=== PATIENT | female | born 1955 | race Caucasian/White ===

== ENCOUNTER 2017-03-10 23:33 | Inpatient (IN) | payer OTHER ==
[~2017-03-10] VITALS: Ht 182.9 cm; Wt 113.2 kg
[2017-03-10 23:41] VITALS: BP 191/97; PULSE 116; RESP 18; O2SAT 99
[2017-03-10 23:43] VITALS: BP 191/97; PULSE 154; RESP 18; TEMP 97.9; O2SAT 99
[2017-03-10 23:50] VITALS: BP 163/98; PULSE 150; RESP 18; O2SAT 100
[2017-03-10 23:51] VITALS: BP 163/98; PULSE 142; RESP 18; O2SAT 99
--- NOTE | 2017-03-10 23:57 | PD ---
HPI Chief Complaint: Chest Pain Time Seen by Provider: 23:50 Travel History International Travel<30 days: No Contact w/Intl Traveler<30days: No Traveled to known affect area: No History of Present Illness HPI 61-year-old female complains of palpitation. Patient states the palpitations started this evening. Patient states that she tried several maneuvers without success. Patient denies any history of cardiac disease. Patient denies any headache. Patient denies any chest pain or shortness of breath. Patient denies abdominal pain. Patient denies history hypertension, diabetes, hyperlipidemia. Patient is a nonsmoker. Patient denies any history of excessive caffeine intake. Patient denies any history of CHF, TIA or CVA. PFSH Past Medical History ?: Not Past Surgical History Hysterectomy: Yes Social History Tobacco Use: No Allergies-Medications (Allergen,Severity, Reaction): Coded Allergies: NSAIDS (Non-Steroidal Anti-Inflamma (Verified Allergy, Severe, Anaphylaxis , 03/11/17) any derivitive of NSAIDS, mouth and tongue swelling Penicillins (Verified Allergy, Severe, hives, edema, 03/10/17) Sulfa (Sulfonamide Antibiotics) (Verified Allergy, Severe, Rash, 03/10/17) aspirin (Verified Allergy, Severe, Edema, 03/10/17) codeine (Verified Allergy, Severe, Hives, 03/10/17) ranitidine (Verified Allergy, Severe, Flushing, hives, 03/10/17) Review of Systems General / Constitutional: No: Fever Eyes: No: Visual changes HENT: No: Headaches Cardiovascular: Positive: Palpitations, No: Chest Pain or Discomfort Respiratory: No: Shortness of Breath Gastrointestinal: No: Abdominal Pain Genitourinary: No: Dysuria Musculoskeletal: No: Pain Skin: No Rash Neurologic: No: Weakness Psychiatric: No: Depression Endocrine: No: Polydipsia Hematologic/Lymphatic: No: Easy Bruising Physical Exam Narrative GENERAL: Well-nourished, well-developed patient. SKIN: Focused skin assessment warm/dry. HEAD: Normocephalic. EYES: No scleral icterus. No injection or drainage. NECK: Supple, trachea midline. No JVD or lymphadenopathy. CARDIOVASCULAR: Irregularly left her tachycardia rate and rhythm without murmurs , gallops, or rubs. RESPIRATORY: Breath sounds equal bilaterally. No accessory muscle use. GASTROINTESTINAL: Abdomen soft, non-tender, nondistended. MUSCULOSKELETAL: No cyanosis, or edema. BACK: Nontender without obvious deformity. No CVA tenderness. Neurologic exam normal. Data Data Last Documented VS Vital Signs Date Time Temp Pulse Resp B/P (MAP) Pulse Ox O2 Delivery O2 Flow Rate FiO2 03/11/17 01:17 134 18 142/79 (100) 98 Nasal Cannula 2.00 03/10/17 23:43 97.9 Orders Orders Electrocardiogram (03/10/17 23:50) Complete Blood Count With Diff (03/10/17 23:50) Comprehensive Metabolic Panel (03/10/17 23:50) Creatine Kinase (Cpk) (03/10/17 23:50) Troponin I (03/10/17 23:50) B-Type Natriuretic Peptide (03/10/17 23:50) Prothrombin Time / Inr (Pt) (03/10/17 23:50) Act Partial Throm Time (Ptt) (03/10/17 23:50) Thyroid Stimulating Hormone (03/10/17 23:50) Chest, Single Ap (03/10/17 23:50) Iv Access Insert/Monitor (03/10/17 23:50) Ecg Monitoring (03/10/17 23:50) Oxygen Administration (03/10/17 23:50) Oximetry (03/10/17 23:50) Sodium Chlor 0.9% 1000 Ml Inj (Ns 1000 M (03/11/17 00:00) Diltiazem Inj (Cardizem Inj) (03/11/17 00:00) Diltiazem Inj (Cardizem Inj) (03/11/17 00:00) Sodium Chloride 0.9% Flush (Ns Flush) (03/11/17 00:00) Admit Order (Ed Use Only) (03/11/17 01:24) Echo 2d Comp With Doppler (03/11/17 ) Admit To Inpatient (03/11/17 ) Vital Signs (Adult) Q4H (03/11/17 01:22) Activity Oob Ad Melanie (03/11/17 01:22) Scientific Affairs Manager / Telemetry .CONTINUOUS (03/11/17 01:22) Intake + Output [place].QSHIFT (03/11/17 01:22) Diet Heart Healthy (03/11/17 Breakfast) Sodium Chlor 0.9% 1000 Ml Inj (Ns 1000 M (03/11/17 01:22) Sodium Chloride 0.9% Flush (Ns Flush) (03/11/17 01:30) Sodium Chloride 0.9% Flush (Ns Flush) (03/11/17 09:00) Ondansetron Inj (Zofran Inj) (03/11/17 01:30) Comprehensive Metabolic Panel (03/12/17 06:00) Complete Blood Count With Diff (03/12/17 06:00) Troponin I (03/11/17 06:00) Troponin I (03/11/17 12:00) Heparin Inj (Heparin Inj) (03/11/17 09:00) Acetaminophen (Tylenol) (03/11/17 01:30) Morphine Inj (Morphine Inj) (03/11/17 01:30) Docusate Sodium-Senna (Gissell-Colace) (03/11/17 09:00) Magnesium Hydroxide Liq (Milk Of Magnesi (03/11/17 01:30) Sennosides (Senokot) (03/11/17 01:30) Bisacodyl Supp (Dulcolax Supp) (03/11/17 01:30) Lactulose Liq (Lactulose Liq) (03/11/17 01:30) Inpatient Certification (03/11/17 ) Nitroglycerin 2% Oint (Nitroglycerin 2% (03/11/17 01:30) Scientific Affairs Manager / Telemetry [place].Q8H (03/11/17 01:25) Vital Signs (Adult) Q1H (03/11/17 01:25) Activity Bed Rest With Brp (03/11/17 01:25) ^ Saline Lock (03/11/17 01:25) Resp Oxygen Oscar C Titrat 1-4 L (03/11/17 ) Notify Dr: Other (03/11/17 01:25) Ondansetron Inj (Zofran Inj) (03/11/17 01:30) Acetaminophen (Tylenol) (03/11/17 01:30) Sodium Chloride 0.9% Flush (Ns Flush) (03/11/17 09:00) Sodium Chloride 0.9% Flush (Ns Flush) (03/11/17 01:30) Consult Cardiology (03/11/17 01:25) Labs Laboratory Tests Test 03/10/17 23:40 White Blood Count 5.6 TH/MM3 Red Blood Count 5.17 MIL/MM3 Hemoglobin 14.8 GM/DL Hematocrit 44.1 % Mean Corpuscular Volume 85.3 FL Mean Corpuscular Hemoglobin 28.7 PG Mean Corpuscular Hemoglobin Concent 33.7 % Red Cell Distribution Width 12.9 % Platelet Count 203 TH/MM3 Mean Platelet Volume 8.5 FL Neutrophils (%) (Auto) 44.0 % Lymphocytes (%) (Auto) 44.5 % Monocytes (%) (Auto) 8.6 % Eosinophils (%) (Auto) 2.2 % Basophils (%) (Auto) 0.7 % Neutrophils # (Auto) 2.5 TH/MM3 Lymphocytes # (Auto) 2.5 TH/MM3 Monocytes # (Auto) 0.5 TH/MM3 Eosinophils # (Auto) 0.1 TH/MM3 Basophils # (Auto) 0.0 TH/MM3 CBC Comment DIFF FINAL Differential Comment Prothrombin Time 10.7 SEC Prothromb Time International Ratio 1.0 RATIO Activated Partial Thromboplast Time 29.4 SEC Blood Urea Nitrogen 11 MG/DL Creatinine 0.88 MG/DL Random Glucose 100 MG/DL Total Protein 8.3 GM/DL Albumin 3.9 GM/DL Calcium Level 8.8 MG/DL Alkaline Phosphatase 90 U/L Aspartate Amino Transf (AST/SGOT) 21 U/L Alanine Aminotransferase (ALT/SGPT) 25 U/L Total Bilirubin 0.5 MG/DL Sodium Level 138 MEQ/L Potassium Level 3.5 MEQ/L Chloride Level 102 MEQ/L Carbon Dioxide Level 25.9 MEQ/L Anion Gap 10 MEQ/L Estimat Glomerular Filtration Rate 66 ML/MIN Total Creatine Kinase 47 U/L Troponin I LESS THAN 0.02 NG/ML B-Type Natriuretic Peptide 40 PG/ML Thyroid Stimulating Hormone 3rd Gen 3.200 uIU/ML MDM Medical Decision Making Medical Screen Exam Complete: Yes Emergency Medical Condition: Yes Interpretation(s) 11:56 PM. EKG shows atrial fibrillation with RVR. Rate 152. Last Impressions Chest X-Ray 03/10/17 2350 Signed Impressions: Service Date/Time: Friday, March 10, 2017 23:58 - CONCLUSION: No acute cardiopulmonary abnormality is identified. Srinivasa Jett MD 1:12 AM. CBC within normal limit. CMP within normal limit. Cardiac enzymes are normal. TSH normal. Differential Diagnosis Differential diagnosis including new onset atrial fibrillation, atrial flutter, PACs, PVCs, ventricular tachycardia. Narrative Course 61-year-old female with complains of palpitation. EKG shows new onset atrial fibrillation with RVR. Cardizem bolus and drip started. Normal saline solution 1 25 cc an hour. Patient has history of allergy to aspirin. Eliquis 5 mg by mouth given. Diagnosis Primary Impression: New onset atrial fibrillation Admitting Information Admitting Physician Requests: Admit Israel Lawrence MD Mar 10, 2017 23:57
[2017-03-10 23:58] VITALS: RESP 18; O2SAT 99
[2017-03-11] VITALS (29 sets, daily range): BP systolic 106–160; BP diastolic 66–87; PULSE 72–150; RESP 15–26; TEMP 97.7–98.3; O2SAT 95–100
[2017-03-11] MEDS ORDERED: DILTIAZEM INJ 125 MG in SODIUM CHLORIDE 0.9% INJ 100 ML IV PRN ×2
[2017-03-11] MEDS ORDERED: SODIUM CHLOR 0.9% 1000 ML INJ 1,000 ML IV SCH
[2017-03-11] MEDS ORDERED: DILTIAZEM HCL 25 MG/5 ML VIAL IV PUSH ONE
[2017-03-11] MEDS ORDERED: SODIUM CHLORIDE 0.9% FLUSH 5 ML FLUSH IV FLUSH PRN
--- NOTE | 2017-03-11 00:05 | RADRPT ---
EXAM DATE/TIME: 03/10/2017 23:58 [facility] COMPARISON: No previous studies available for comparison. INDICATIONS : Chest discomfort. Weakness. MEDICAL HISTORY : None. SURGICAL HISTORY : None. ENCOUNTER: Initial ACUITY: 1 day PAIN SCORE: 7/10 LOCATION: Bilateral chest FINDINGS: Portable AP view of the chest demonstrates a normal-sized cardiac silhouette. No effusion, consolidat ion, or pneumothorax is visualized. The bones and soft tissues demonstrate no acute abnormality. CONCLUSION: No acute cardiopulmonary abnormality is identified. Srinivasa Jett MD on March 11, 2017 at 0:04 Board Certified Radiologist. This report was verified electronically.
[2017-03-11 00:15] LABS: CHLORIDE 102 MEQ/L (98-107); POTASSIUM 3.5 MEQ/L (3.5-5.1); SODIUM (NA) 138 MEQ/L (136-145)
[2017-03-11 00:20] LABS: ANION GAP 10 MEQ/L (5-15); BICARBONATE 25.9 MEQ/L (21.0-32.0); BLOOD UREA NITROGEN 11 MG/DL (7-18)
[2017-03-11 00:23] LABS: ALT (GPT) 25 U/L (10-53); AST (GOT) 21 U/L (15-37); GLOMERULAR FILTRATION RATE 66 ML/MIN (>89)
[2017-03-11 00:25] LABS: TOTAL BILIRUBIN ADULT 0.5 MG/DL (0.2-1.0)
[2017-03-11 00:26] LABS: ALKALINE PHOSPHATASE 90 U/L (45-117)
[2017-03-11 00:31] LABS: CREATINE KINASE 47 U/L (26-192)
[2017-03-11 00:33] LABS: APTT (PATIENT) 29.4 SEC (24.3-30.1); PROTHROMBIN TIME - PATIENT 10.7 SEC (9.8-11.6)
[2017-03-11 00:35] LABS: AUTOMATED NEUTROPHIL # 2.5 TH/MM3 (1.8-7.7); BASOPHIL % 0.7 % (0.0-2.0); EOSINOPHIL # 0.1 TH/MM3 (0-0.4); EOSINOPHIL % 2.2 % (0.0-4.0); HEMATOCRIT 44.1 % (35.0-46.0); HEMO FLAGS DIFF FINAL; LYMPH % 44.5 % (9.0-44.0); LYMPHOCYTE # 2.5 TH/MM3 (1.0-4.8); MEAN CELL VOLUME 85.3 FL (80.0-100.0); MEAN CORPUSCULAR HEMOGLOBIN 28.7 PG (27.0-34.0); MEAN CORPUSCULAR HGB CONC 33.7 % (32.0-36.0); MONO % 8.6 % (0.0-8.0); PLATELET COUNT 203 TH/MM3 (150-450); RED BLOOD COUNT 5.17 MIL/MM3 (4.00-5.30); RED CELL DISTRIBUTION WIDTH 12.9 % (11.6-17.2); WHITE BLOOD COUNT 5.6 TH/MM3 (4.0-11.0)
[2017-03-11] MEDS: SODIUM CHLOR 0.9% 1000 ML INJ 1,000 ML IV SCH ×2 (01:22→02:01)
[2017-03-11] MEDS ORDERED: SODIUM CHLORIDE 0.9% FLUSH 10 ML FLUSH IV FLUSH PRN (01:30)
[2017-03-11] MEDS ORDERED: ONDANSETRON HCL 4 MG/2 ML VIAL IVP PRN (01:30)
[2017-03-11] MEDS ORDERED: MAGNESIUM HYDROXIDE SUSP 30 ML CUP PO PRN (01:30)
[2017-03-11] MEDS ORDERED: ONDANSETRON HCL 4 MG/2 ML VIAL IV PRN (01:30)
[2017-03-11] MEDS ORDERED: SENNOSIDES 8.6 MG TAB PO PRN (01:30)
[2017-03-11] MEDS ORDERED: LACTULOSE SYRUP 20 GM/30 ML CUP PO PRN (01:30)
[2017-03-11] MEDS ORDERED: MORPHINE SULFATE 4 MG/ML INJ IV PRN (01:30)
[2017-03-11] MEDS ORDERED: BISACODYL 10 MG SUPP RECTAL PRN (01:30)
[2017-03-11] MEDS ORDERED: NITROGLYCERIN 2% OINT 1 GM PACKET TOPICAL PRN (01:30)
[2017-03-11] MEDS ORDERED: SODIUM CHLORIDE 0.9% FLUSH 10 ML FLUSH IVF PRN (01:30)
[2017-03-11] MEDS ORDERED: ACETAMINOPHEN 325 MG TAB PO PRN ×2 (01:30)
[2017-03-11] MEDS ORDERED: APIXABAN 5 MG TABLET PO ONE (01:45)
[2017-03-11] MEDS ORDERED: CHLORHEXIDINE GLUCONATE 2 % 1 PACK (2 CLOTHS)(extra cloths) TOPICAL PRN (03:15)
[2017-03-11] MEDS ORDERED: CHLORHEXIDINE GLUCONATE 2 % 1 PACK (2 CLOTHS)(taper/protocol) TOPICAL SCH (04:00)
[2017-03-11] MEDS ORDERED: diphenhydrAMINE HCL 50 MG/ML VIAL IV PUSH ONE (04:30)
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
[2017-03-11] MEDS ORDERED: POTASSIUM CHLORIDE 20 MEQ CONTROLLED RELEASE TAB PO ONE (08:45)
[2017-03-11] MEDS ORDERED: DOCUSATE SODIUM 50 MG/SENNA 8.6 MG TAB PO SCH (09:00)
[2017-03-11] MEDS ORDERED: HEPARIN SODIUM - SQ 10,000 UNITS/ML VIAL SQ SCH (09:00)
[2017-03-11] MEDS ORDERED: SODIUM CHLORIDE 0.9% FLUSH 10 ML FLUSH IV FLUSH SCH ×2 (09:00)
[2017-03-11 11:16] LABS: MRSA PCR NEGATIVE (NEGATIVE); STAPH AUREUS PCR NEGATIVE (NEGATIVE)
--- NOTE | 2017-03-11 11:38 | HHI.DCPOC ---
Discharge Care Plan Diagnosis: (1) New onset atrial fibrillation Your Health Problems Are: Difficulty with ADL Exercise Tolerance Goals to Promote Your Health * To prevent worsening of your condition and complications * To maintain your health at the optimal level Directions to Meet Your Goals Take your medications as prescribed Follow your dietary instruction Follow activity as directed Keep your appointments as scheduled Take your immunizations and boosters as scheduled If your symptoms worsen call your PCP, if no PCP go to Urgent Care Center or Emergency Room Smoking is Dangerous to Your Health. Avoid second hand smoke Call the 24-hour hour crisis hotline for domestic abuse at Nadeem Campbell MD Mar 11, 2017 11:38
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
--- NOTE | 2017-03-11 14:30 | EKG ---
Date Performed: 03/10/2017 Time Performed: 23:46:57 PTAGE: 61 years EKG: ATRIAL FIBRILLATION WITH RAPID VENTRICULAR RESPONSE NONSPECIFIC ST & T-WAVE ABNORMALITY ABN ORMAL RHYTHM ECG NO PREVIOUS TRACING DOCTOR: Javed Marcelo Interpretating Date/Time 03/11/2017 14:26:34
--- NOTE | 2017-03-11 21:02 | ECHRPT ---
Indication: ATRIAL FIB / FLUTTER CONCLUSIONS Normal left ventricular size. Wall thickness is normal. The left ventricular systolic function is normal with an estimated ejection fraction in the range of 60-65%. The aortic root and proximal ascending aorta are not well visualized. Trace mitral valve regurgitation. Aortic valve sclerosis is present. There is trace tricuspid valve regurgitation. BP: 131 / 76 HR: 118 Rhythm: Sinus MEASUREMENTS (Male / Female) Normal Values Technical Quality:Fair 2D ECHO LV Diastolic Diameter PLAX 4.2 cm 4.2 - 5.9 / 3.9 - 5.3 cm LV Systolic Diameter PLAX 3.1 cm IVS Diastolic Thickness 0.9 cm 0.6 - 1.0 / 0.6 - 0.9 cm LVPW Diastolic Thickness 0.9 cm 0.6 - 1.0 / 0.6 - 0.9 cm LV Relative Wall Thickness 0.4 LVOT Diameter 1.6 cm Aortic Root Diameter 2.7 cm LA Systolic Diameter LX 2.5 cm 3.0 - 4.0 / 2.7 - 3.8 cm M-MODE AV Cusp Separation MM 1.9 cm DOPPLER AV Peak Velocity 105.0 cm/s AV Peak Gradient 4.4 mmHg AV Mean Gradient 3.0 mmHg AV Velocity Time Integral 18.2 cm LVOT Peak Velocity 81.2 cm/s LVOT Peak Gradient 2.6 mmHg LVOT Velocity Time Integral 14.2 cm LVOT Cardiac Index 1386.0 cm/minm AV Area Cont Eq vti 1.6 cm AV Area Cont Eq pk 1.6 cm Mitral E Point Velocity 62.7 cm/s Mitral A Point Velocity 49.9 cm/s Mitral E to A Ratio 1.3 LV E' Lateral Velocity 7.5 cm/s Mitral E to LV E' Lateral Ratio 8.3 LV E' Septal Velocity 6.0 cm/s Mitral E to LV E' Septal Ratio 10.4 TR Peak Velocity 136.0 cm/s TR Peak Gradient 7.4 mmHg PV Peak Velocity 56.4 cm/s PV Peak Gradient 1.3 mmHg FINDINGS LEFT VENTRICLE Normal left ventricular size. Wall thickness is normal. No regional wall motion abnormalities are present. Left ventricular diastolic function parameters are normal. RIGHT VENTRICLE Normal right ventricular size and systolic function. LEFT ATRIUM The left atrial size is normal. RIGHT ATRIUM The right atrial size is normal. ATRIAL SEPTUM The interatrial septum not well visualized. AORTA The aortic root and proximal ascending aorta are not well visualized. MITRAL VALVE Structurally normal mitral valve. Trace mitral valve regurgitation. AORTIC VALVE Aortic valve sclerosis is present. No aortic valve regurgitation. No aortic valve stenosis. TRICUSPID VALVE Structurally normal tricuspid valve. There is trace tricuspid valve regurgitation. Normal estimated pulmonary pressures. No tricuspid valve stenosis. PULMONARY VALVE The pulmonary valve is not well visualized. VESSELS The inferior vena cava was not well visualized. PERICARDIUM A prominent epicardial fat pad is present. No pericardial effusion. Adele Gay MD, FACC (Electronically Signed) Final Date:11 March 2017 21:01
== END 2017-03-11 12:40 | disposition home or self-care (01) | DRG 310 ==
LOC: PHED 23:33 → PHEDA 03-11 01:26 → PHICU 03-11 02:51
PROVIDERS: ADMIT Internal Medicine; ATTEND Internal Medicine
DX: I48.91 Unspecified atrial fibrillation (principal)
CPT/HCPCS: 71010; 80053; 80307; 82550; 83735; 83880; 84443; 84484; 85025; 85610; 85730; 87640; 87641; 93005; 93306; 96365; 96375; J1200; J7030

== ENCOUNTER → 2017-04-04 | Outpatient (CLI) | payer OTHER ==
[2017-04-04 14:12] LABS: BICARBONATE 28.3 MEQ/L (21.0-32.0)
== END ==
LOC: CLAB 13:15
PROVIDERS: ATTEND Nuclear Medicine Nuclear Cardiology
DX: I48.91 Unspecified atrial fibrillation (principal); R07.9 Chest pain, unspecified; R00.2 Palpitations
CPT/HCPCS: 36415; 80048